=== PATIENT | female | born 1940 | race Caucasian/White ===

== ENCOUNTER 2019-06-26 22:26 | Emergency (ER) | payer MEDICARE ==
[~2019-06-26] VITALS: Ht 160 cm; Wt 108.9 kg
[~2019-06-26 22:26] MED LIST: ALBUTEROL2.5 MG/0.5 INH; ALLERGY MEDICAT25 M1 PO; AMLODIPINE BESY1 TAB PO; AMLODIPINE BESY10 MG PO; ANUSOL-HC25 MG RC; ASPIRIN81 M1 PO; ATIVAN1 MG PO; BACTRIM DS 8001 TAB PO; BROVANA15 MCG/2 M INH; BUDESONIDE0.25 MG/2 IH; CARTIA XT240 MG PO; CELEXA20 MG PO; CITALOPRAM HYDR20 MG PO; CITALOPRAM20 MG/10 M PO; FLURAZEPAM30 MG PO; GLIPIZIDE10 M2 PO; HYDROCODONE BIT1 T11 PO; JANUVIA100 MG PO; LEVOTHYROXIN0.125 MG PO; LIDODERM 5% PATC1 EA PO; LISINOPRIL20 MG PO; LORAZEPAM0.5 MG PO; MACRODANTIN50 MG PO; NEURONTIN300 MG PO; NYAMYC100000 U/G T; Nystatin Cream15 GM T; PROTONIX40 MG PO; STOOL SOFTENER250 M2 PO; TAMSULOSIN HCL0.4 MG PO; TIZANIDINE HCL4 M1 PO; VITAMIN C100 M3 PO; VITAMIN D; VITAMIN D1000 IU PO; ZANAFLEX4 M2 PO
[2019-06-27] MEDS ORDERED: ROBAXIN-750750 MG PO (01:31)
== END 2019-06-27 02:05 | disposition home or self-care (01) ==
LOC: ED 22:26
DX: M12.88 Other specific arthropathies, not elsewhere classified, other specified site (principal); E11.9 Type 2 diabetes mellitus without complications; E03.9 Hypothyroidism, unspecified; I10 Essential (primary) hypertension; J45.909 Unspecified asthma, uncomplicated; Z88.0 Allergy status to penicillin; Z79.899 Other long term (current) drug therapy; Z79.82 Long term (current) use of aspirin

== ENCOUNTER 2022-01-12 17:37 | Emergency (ER) | payer MEDICARE ==
[~2022-01-12] VITALS: Ht 160 cm; Wt 100.2 kg
[~2022-01-12 17:37] MED LIST changes: +ROBAXIN-750750 MG PO
[2022-01-12 18:36] LABS: BASO % 0.7 % (0.0-1.0); EOS # 0.3 10*3/uL (0.0-0.4); EOS % 5.3 % (1.0-4.0); HEMATOCRIT 35.9 % (37.0-47.0); LYMPH # 0.8 10*3/uL (1.3-4.4); LYMPH % 13.9 % (27.0-41.0); MEAN CELL VOLUME 91.3 fl (81.0-99.0); MEAN CORPUSCULAR HGB 29.8 pg (27.0-31.0); MEAN CORPUSCULAR HGB CONC 32.6 g/dl (33.0-37.0); MEAN PLATELET VOLUME 9.8 fl (9.6-12.3); MONO # 0.6 10*3/uL (0.1-1.0); MONO % 10.8 % (3.0-9.0); NEUT # 3.8 10*3/uL (2.3-7.9); NEUT % 68.8 % (47.0-73.0); PLATELET COUNT AUTOMATED 239 10*3/uL (130-400); RED BLOOD COUNT 3.93 10*6/uL (4.10-5.10); RED CELL DISTRI WIDTH 12.6 % (0-14.5); WHITE BLOOD COUNT 5.5 10*3/uL (4.8-10.8)
[2022-01-12 18:52] LABS: ALKALINE PHOSPHATASE 101 U/L (45-117); BUN 18 mg/dl (7-24); CHLORIDE 101 mmol/L (98-107); CREATININE 1.02 mg/dL (0.55-1.02); POTASSIUM 3.4 mmol/L (3.5-5.1); SGOT/AST 17 IU/L (3-35); SGPT/ALT 17 U/L (12-78); SODIUM 138 mmol/L (136-145); TOTAL PROTEIN 7.6 gm/dL (6.4-8.2)
[2022-01-12] MEDS ORDERED: VIBRAMYCIN100 MG PO ×3 (19:50→19:56)
== END 2022-01-12 20:12 | disposition home or self-care (01) ==
LOC: ED 17:37
PROVIDERS: Physician Assistant
DX: L03.116 Cellulitis of left lower limb (principal); Z90.49 Acquired absence of other specified parts of digestive tract; Z90.710 Acquired absence of both cervix and uterus; Z98.890 Other specified postprocedural states; Z79.82 Long term (current) use of aspirin; Z79.899 Other long term (current) drug therapy; Z88.0 Allergy status to penicillin